=== PATIENT | male | born 1990 | race Asian ===

== ENCOUNTER 2017-09-24 09:05 | Emergency (ER) | payer BC ==
[2017-09-24] MEDS: methylPREDNISolone ACETATE 80 MG/ML VIAL. IM ×2 (09:42)
[2017-09-24] MEDS: DEXAMETHASONE SOD PHOS 4 MG/ML VIAL IM ×2 (09:42)
== END 2017-09-24 09:56 | disposition home or self-care (01) ==
LOC: ER 09:05
DX: L23.9 Allergic contact dermatitis, unspecified cause (principal); M10.9 Gout, unspecified
CPT/HCPCS: 96372; 99284; J1040; J1100

== ENCOUNTER 2018-07-11 22:57 | Emergency (ER) | payer BC ==
[~2018-07-11] VITALS: Ht 182.9 cm; Wt 150.6 kg
[~2018-07-11 22:57] MED LIST: ALLO100T PO; CIME200T6 PO; METH4TAB2 PO
[2018-07-11 23:30] VITALS: BP 164/78
[2018-07-12] MEDS ORDERED: DEXAMETHASONE SOD PHOS 20 MG/5 ML VIAL. PO ONE
[2018-07-12] MEDS ORDERED: AMOX500T PO (00:03)
--- NOTE | 2018-07-12 00:04 | PHYS DOC ---
Past Medical History Past Medical History: No Pertinent History, Other Additional Past Medical Histor: "Pre-diabetes," gout Past Surgical History: Appendectomy Alcohol Use: Occasionally Drug Use: None Adult General Chief Complaint Chief Complaint: SORE THROAT HPI HPI Patient is a 27 year old male who presents to the ER with complaints of a sore throat with painful swallowing and enlarged tonsils for the last 2 days. PT denies any fever, rash, difficulty breathing, cough, nausea, vomiting, or abdominal pain. He states it hurts to swallow. He denies any difficulty speaking. Review of Systems Review of Systems Constitutional: Denies fever or chills [] HENT: Denies nasal congestion or ear pain; reports sore throat [] Respiratory: Denies cough or shortness of breath [] GI: Denies abdominal pain, nausea, or vomiting Integument: Denies rash or skin lesions [] Neurologic: Denies headache, focal weakness or sensory changes [] All other systems were reviewed and found to be within normal limits, except as documented in this note. Current Medications Current Medications Current Medications Medications (Trade) Dose Ordered Sig/Malik Start Time Stop Time Status Last Admin Dose Admin Dexamethasone Sodium Phosphate (Decadron) 10 mg 1X ONCE 07/12/18 00:00 07/12/18 00:01 UNV Allergies Allergies Allergies Coded Allergies Type Severity Reaction Last Updated Verified No Known Drug Allergies 12/19/13 No Physical Exam Physical Exam Constitutional: Well developed, well nourished, no acute distress, non-toxic appearance, obese . [] HENT: Normocephalic, atraumatic, bilateral external ears normal, bilateral TMs normal, 3+ edema of bilateral tonsils with moderate exudate, oropharynx moist, nose normal. [] Eyes: conjunctiva normal, no discharge. [] Neck: Normal range of motion, anterior cervical lymphadenopathy and tenderness bilat, no stridor. [] Cardiovascular:Heart rate regular rhythm, no murmur [] Lungs & Thorax: Bilateral breath sounds clear to auscultation [] Skin: Warm, dry, no erythema, no rash. [] Neurologic: Alert and oriented X 3, normal motor function, normal sensory function, no focal deficits noted. [] Psychologic: Affect normal, judgement normal, mood normal. [] Current Patient Data Vital Signs Vital Signs Date Time Temp Pulse Resp B/P (MAP) Pulse Ox O2 Delivery O2 Flow Rate FiO2 11/29/18 23:30 98.6 74 17 164/78 (106) 98 Room Air 98.6 EKG EKG [] Radiology/Procedures Radiology/Procedures rapid strep negative[] Course & Med Decision Making Course & Med Decision Making Pertinent Labs and Imaging studies reviewed. (See chart for details) Dx: Pharyngitis Clinically pt presents as strep pharyngitis, will treat with amoxicillin. Advised pt to take tylenol or ibuprofen as needed for pain/fever. One dose of oral decadron was given in the ER. Recommend warm salt water gargles, discard toothbrush 24 hours after antibiotics are started. Patient verbalized an understanding of home care, medications, follow-up, and return to ED instructions and was in agreement with the plan of care. [] Dragon Disclaimer Dragon Disclaimer This electronic medical record was generated, in whole or in part, using a voice recognition dictation system. Departure Departure Impression: Primary Impression: Pharyngitis Disposition: HOME, SELF-CARE Condition: STABLE Referrals: TISH ZARATE (PCP) Patient Instructions: Viral and Bacterial Pharyngitis, [id number] Additional Instructions: Fill prescription and use as directed. Recommend warm salt water gargles as needed for relief of discomfort. Alternate Tylenol and ibuprofen as needed for fever/pain. Discard your toothbrush tomorrow and begin using a new toothbrush. Follow-up with primary care doctor if symptoms persist. Return to the ER if symptoms worsen. Scripts Amoxicillin (AMOXICILLIN) 500 Mg Tablet 1 TAB PO BID for 10 Days, #20 TAB 0 Refills Prov: JANIE BRUMFIELD APRN 07/12/18 Problem Qualifiers Primary Impression: Pharyngitis Pharyngitis/tonsillitis etiology: unspecified etiology Qualified Codes: J02.9 - Acute pharyngitis, unspecified JANIE BRUMFIELD ENVIRONMENTAL HEALTH PHYSICIAN Jul 12, 2018 00:04
== END 2018-07-12 00:12 | disposition home or self-care (01) ==
LOC: ER 22:57
DX: J02.9 Acute pharyngitis, unspecified (principal); J35.1 Hypertrophy of tonsils; R59.0 Localized enlarged lymph nodes; Z90.89 Acquired absence of other organs
CPT/HCPCS: 87070; 87880; 99283; J1100